=== PATIENT | male | born 1960 ===

== ENCOUNTER 2016-07-16 13:45 | Emergency (ER) | payer OTHER ==
[2016-07-16 13:54] VITALS: BP 142/92; PULSE 90; RESP 21; TEMP 97.1; O2SAT 100
--- NOTE | 2016-07-16 14:26 | ED PDOC ---
HPI: General Adult Time Seen by Provider: 07/16/16 14:03 Chief Complaint (Nursing): Bite Chief Complaint (Provider): Dog BIte History Per: Patient History/Exam Limitations: no limitations Onset/Duration Of Symptoms: Days (x7) Current Symptoms Are (Timing): Still Present Additional Complaint(s): 14:03 Jeronimo Frances is a 56 year old male that presents to the ED after he was bit by a dog on his left lower leg last week. Patient states that he knows the dog, it is family owned, and it did not appear rabid, but that he is concerned about infection as the area surrounding the wound is red. He denies any bleeding, fever, chills, nausea, vomiting, swelling to leg, or drainage form the wound. Patient's tetanus vaccination UTD. Past Medical History Reviewed: Historical Data, Nursing Documentation, Vital Signs Vital Signs: Last Vital Signs Temp 97.1 F L 07/16/16 13:50 Pulse 90 07/16/16 13:50 Resp 21 07/16/16 13:50 BP 142/92 H 07/16/16 13:50 Pulse Ox 100 07/16/16 14:32 - Family History Family History: States: Unknown Family Hx - Home Medications Home Medications: Ambulatory Orders Medication Instructions Recorded Amoxicillin/Clavulanate [Augmentin 1 tab PO BID #14 tab 07/16/16 875 MG-125 MG] Fexofenadine/Pseudoephedrine 1 each PO DAILY #30 tab.er.24h 07/16/16 [Miranda-D 24 Hour Tablet] - Allergies Allergies/Adverse Reactions: Allergies Allergy/AdvReac Type Severity Reaction Status Date / Time No Known Allergies Allergy Verified 11/18/15 22:15 Review of Systems Constitutional: Negative for: Weakness Musculoskeletal: Positive for: Leg Pain (wound on left lower leg) Skin: Positive for: Other (erythema surrounding wound on leg) Physical Exam - Reviewed Nursing Documentation Reviewed: Yes Vital Signs Reviewed: Yes - Physical Exam Appears: Positive for: Non-toxic, No Acute Distress Head Exam: Positive for: ATRAUMATIC, NORMOCEPHALIC Skin: Positive for: Warm. Negative for: Normal Color (redness surrounding wound on left lower leg) Eye Exam: Positive for: Normal appearance, EOMI Cardiovascular/Chest: Positive for: Regular Rate, Rhythm. Negative for: Murmur Respiratory: Positive for: Normal Breath Sounds. Negative for: Respiratory Distress Pulses-Dorsalis Pedis (L): 2+ Pulses-Dorsalis Pedis (R): 2+ Extremity: Positive for: Normal ROM. Negative for: Tenderness, Pedal Edema, Other (3x4 cm wound with some necrosis in the center and mild erythema surrounding the area on the lateral side of his lower left leg. No streaking, non tender, no swelling.) Neurologic/Psych: Positive for: Alert, market research assistant II-XII, Oriented - ECG O2 Sat by Pulse Oximetry: 100 (RA) Pulse Ox Interpretation: Normal Medical Decision Making Medical Decision Makin:20 Impression: Possible Infection Initial Plan: * If patient is infected, will give Rx for Augmentin and will advise to return to ER in 3 days if progressive. No indication at this time for IV antibiotics. Scribe Attestation: Documented by Ida Rivera, acting as a scribe for Helena Renee PA-C. Provider Scribe Attestation: All medical record entries made by the Scribe were at my direction and personally dictated by me. I have reviewed the chart and agree that the record accurately reflects my personal performance of the history, physical exam, medical decision making, and the department course for this patient. I have also personally directed, reviewed, and agree with the discharge instructions and disposition. Disposition - Clinical Impression Clinical Impression: Animal bite wound Counseled Patient/Family Regarding: Diagnosis, Need For Followup, Rx Given - Disposition Disposition: Routine/Home Disposition Time: 18:59 Condition: STABLE Additional Instructions: RAHUL TUS ANTIBITICOS Y SI CONSIDERA QUE LA REDNESS SE PONE EN PELIGRO O CON FIEBRE Y ENFRIAMIENTO, REGRESA AL DEPARTAMENTO DE EMERGENCIA TAKE YOUR ANTIBIOTICS AND IF YOU NOTE THE REDNESS GETTING WORSE OR WITH FEVER AND CHILLS RETURN TO THE EMERGENCY DEPARTMENT Prescriptions: Amoxicillin/Clavulanate [Augmentin 875 MG-125 MG] 1 tab PO BID #14 tab Fexofenadine/Pseudoephedrine [Miranda-D 24 Hour Tablet] 1 each PO DAILY #30 tab.er.24h Instructions: Animal Bite (ED) Print Language: LATVIAN
== END 2016-07-16 14:33 | disposition home or self-care (01) ==
LOC: H.ER 13:45
DX: L03.116 Cellulitis of left lower limb (principal)